=== PATIENT | female | born 1950 | race Caucasian/White ===

== ENCOUNTER 2018-10-26 11:24 | Emergency (ER) | payer OTHER ==
[2018-10-26] MEDS ORDERED: TETANUS & DIPHTHERIA TOX,ADULT 0.5 ML VIAL ONE (12:06)
[2018-10-26] MEDS ORDERED: ONDANSETRON 4 MG/2 ML VIAL ONE (12:06)
[2018-10-26] MEDS ORDERED: MORPHINE 2 MG/ML SYR ONE (12:06)
[2018-10-26 12:16] LABS: Absolute Monocytes 0.5 K/uL (0.1-1.3); Absolute Neutrophil 6.2 K/uL (1.8-8.0); Basophils % 0.8 % (0-1.3); Eosinophils % 0.7 % (0-4.4); Hematocrit 42.7 % (36.0-45.0); Lymphocytes % 22.8 % (15.3-44.8); MPV 8.2 fL (7.6-11.3); Monocytes % 5.9 % (3.3-12.3); RBC Red Blood Cell Count 4.78 M/uL (3.86-4.86)
[2018-10-26] MEDS ORDERED: CEFAZOLIN 1GM (PREMIX IV) 1 GM/50 ML BAG ONE (12:17)
[2018-10-26 12:36] LABS: ALT/SGPT 22 U/L (12-78); AST/SGOT 16 U/L (15-37); Albumin 4.1 g/dL (3.4-5.0); Alkaline Phosphatase 81 U/L (45-117); BUN Blood Urea Nitrogen 15 mg/dL (7-18); Bicarbonate 29 mmol/L (21-32); Bilirubin Direct 0.1 mg/dL (0-0.2); Bilirubin Total 0.4 mg/dL (0.2-1.0); Glucose Level 107 mg/dL (74-106); NT PRO-BNP 73 pg/mL (<125); Potassium 3.8 mmol/L (3.5-5.1); Protein, Total 7.4 g/dL (6.4-8.2); Sodium Level 144 mmol/L (136-145); Troponin (Emerg Dept Use Only) < 0.02 ng/mL (0.0-0.045)
[2018-10-26 12:39] LABS: Protime INR 1.04
--- NOTE | 2018-10-26 12:49 | RAD REPORT ---
EXAM DESCRIPTION: Konstantin Single View10/26/2018 12:42 pm CLINICAL HISTORY: Chest pain COMPARISON: none FINDINGS: The lungs appear clear of acute infiltrate. The heart is normal size IMPRESSION: No acute abnormalities displayed
--- NOTE | 2018-10-26 12:51 | RAD REPORT ---
EXAM DESCRIPTION: RAD - Wrist Left 3 View - 10/26/2018 12:42 pm CLINICAL HISTORY: Left wrist pain status post injury FINDINGS: Impacted comminuted markedly displaced intra-articular fracture involves the distal radius . Mildly displaced fracture of the distal ulna. No gross dislocation seen
--- NOTE | 2018-10-26 13:19 | ER ---
Nurse's Notes [facility] Name: Sharon Bello Age: 68 yrs Sex: Female : 1950 Arrival Date: 10/26/2018 Time: 11:29 Bed 18 Private MD: Chip Greenwood Diagnosis: Colles' fracture-Open, left wrist Presentation: 10/26 11:30 Presenting complaint: Patient states: slipped and fell today onto her left wrist after sv falling onto a wooden floor. Transition of care: patient was not received from another setting of care. Onset of symptoms was October 26, 2018. Care prior to arrival: None. 11:30 Method Of Arrival: Ambulatory sv 11:30 Acuity: KOMAL 3 sv 11:32 Risk Assessment: Do you want to hurt yourself or someone else? Patient reports no aa5 desire to harm self or others. Initial Sepsis Screen: Does the patient meet any 2 criteria? No. Patient's initial sepsis screen is negative. Does the patient have a suspected source of infection? No. Patient's initial sepsis screen is negative. 11:32 Mechanism of Injury: Fall from standing position. Trauma event details: Injury occurred aa5 in the [facility], Injury occurred: at home. Injury occurred: October 26, 2018. Triage Assessment: 11:32 General: Appears in no apparent distress. uncomfortable, Behavior is calm, cooperative, sv appropriate for age. Pain: Complains of pain in left arm. Neuro: Level of Consciousness is awake, alert, obeys commands, Oriented to person, place, time, situation, Moves all extremities. Full function Gait is steady. Respiratory: Respiratory effort is even, unlabored, Respiratory pattern is regular, symmetrical. Derm: Skin is pink, warm \T\ dry. Musculoskeletal: Range of motion: limited in left wrist. 11:32 Injury Description: Fall. aa5 Trauma Activation: Not Applicable Physician: ED Physician; Name: ; Notified At: ; Arrived At: Physician: General Surgeon; Name: ; Notified At: ; Arrived At: Physician: Radiology; Name: ; Notified At: ; Arrived At: Physician: Respiratory; Name: ; Notified At: ; Arrived At: Physician: Lab; Name: ; Notified At: ; Arrived At: Historical: - Allergies: 11:31 No Known Allergies; sv - PMHx: 11:31 None; sv - PSHx: 11:31 ; sv - Immunization history: Last tetanus immunization: unknown. - Ebola Screening: : No symptoms or risks identified at this time. Screenin:40 Abuse screen: Denies threats or abuse. Nutritional screening: No deficits noted. aa5 Tuberculosis screening: No symptoms or risk factors identified. Primary Survey: 11:32 NO uncontrolled hemorrhage observed. A: Airway: patent. Breathing/Chest: Respiratory aa5 pattern: regular, Respiratory effort: spontaneous, unlabored, Chest inspection: symmetrical rise and fall of the chest. Circulation: Skin color: pink. Disability Alert. Exposure/Environment: A warming method has been applied: A warm blanket has been provided to the patient. 11:45 Reassessment Airway Airway Patent Breathing/Chest Respiratory pattern Regular aa5 Respiratory effort Spontaneous Unlabored Circulation Color Corazon Disability Alert. Secondary Survey: 11:32 HEENT: No deficits noted. Gastrointestinal: No deficits noted. : No deficits noted. aa5 Musculoskeletal: deformity noted to left wrist. Assessment: 11:32 General: Appears uncomfortable, Behavior is calm, cooperative. Pain: Complains of pain aa5 in left wrist Pain does not radiate. Pain currently is 5 out of 10 on a pain scale. Quality of pain is described as sharp, tender, numb, Is continuous. Neuro: Level of Consciousness is awake, alert, obeys commands, Oriented to person, place, time, situation. EENT: No signs and/or symptoms were reported regarding the EENT system. Cardiovascular: Heart tones S1 S2 present Rhythm is regular. Respiratory: Airway is patent Respiratory effort is even, unlabored, Respiratory pattern is regular, symmetrical. GI: No signs and/or symptoms were reported involving the gastrointestinal system. : No signs and/or symptoms were reported regarding the genitourinary system. Derm: Skin is pink, warm \T\ dry. Musculoskeletal: Deformity noted to left wrist, swelling noted to left wrist, pt reports tingling and numbness to left fingers, left radial pulse 3+ palpated. Small puncture wound noted to left wrist, mild bleeding noted at this time. Pt able to move left fingers. 12:40 Reassessment: Patient is alert, oriented x 3, equal unlabored respirations, skin aa5 warm/dry/pink. Patient states feeling better. Pt reports pain has decreased. 13:10 Reassessment: Patient appears in no apparent distress at this time. Patient and/or em family updated on plan of care and expected duration. Pain level reassessed. Patient is alert, oriented x 3, equal unlabored respirations, skin warm/dry/pink. report called to LIEN [place] at [facility], pending transportation Patient states feeling better. 13:57 Reassessment: Patient appears in no apparent distress at this time. Patient and/or em family updated on plan of care and expected duration. Pain level reassessed. Patient is alert, oriented x 3, equal unlabored respirations, skin warm/dry/pink. report given to [facility]. Vital Signs: 11:31 BP 140 / 85; Pulse 77; Resp 18; Temp 98.2; Pulse Ox 97% ; Weight 70.31 kg; Height 5 ft. sv 2 in. (157.48 cm); Pain 5/10; 12:45 BP 140 / 73; Pulse 72; Resp 18; Temp 98.3(O); Pulse Ox 100% on R/A; Pain 5/10; em 13:45 BP 136 / 75; Pulse 68; Resp 19; Pulse Ox 99% on R/A; em 11:31 Body Mass Index 28.35 (70.31 kg, 157.48 cm) sv [place] Score: 11:31 Eye Response: spontaneous(4). Verbal Response: oriented(5). Motor Response: obeys aa5 commands(6). Total: 15. Trauma Score (Adult): 11:31 Eye Response: spontaneous(1); Verbal Response: oriented(1); Motor Response: obeys aa5 commands(2); Systolic BP: > 89 mm Hg(4); Respiratory Rate: 10 to 29 per min(4); Hari Score: 15; Trauma Score: 12 ED Course: 11:29 Patient arrived in ED. mr 11:29 Chip Greenwood DO is Private Physician. mr 11:30 Triage completed. sv 11:32 Arm band placed on Patient placed in an exam room, on a stretcher. sv 11:32 Patient has correct armband on for positive identification. Bed in low position. Call aa5 light in reach. Side rails up X2. 11:32 Thermoregulation: warm blanket given to patient. aa5 11:32 Patient maintains SpO2 saturation greater than 95% on room air. aa5 11:33 Jessee Delarosa PA is PHCP. cp 11:33 Jessee Sunshine MD is Attending Physician. cp 11:51 Raymundo Joaquin LVN is Primary Nurse. em 12:43 XRAY Wrist LEFT 3 view In Process Unspecified. EDMS 12:43 XRAY Chest (1 view) In Process Unspecified. EDMS 12:57 No provider procedures requiring assistance completed. aa5 13:03 EKG done, by i&c tech. reviewed by Jessee LEWIS. at1 13:42 Orthoglass splint: Sugar tong splint applied on left arm. ms 14:00 Patient transferred, IV remains in place. 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 Exp: em 09/11/2020. Lot #: [id number]. } Route: IM; Site: left deltoid; 12:40 Follow up: Response: No adverse reaction aa5 12:25 Drug: morphine 4 mg Route: IVP; Site: right antecubital; aa5 Outcome: 13:19 ER care complete, transfer ordered by MD. cp 14:00 Transferred by ground EMS to [facility], Transfer form completed. X-rays sent aa5 w/ patient. 14:00 Condition: stable 14:00 Discharge instructions given to patient, Instructed on the need for transfer. 14:03 Patient left the ED. aa5 Signatures: Dispatcher [employer] June Ragland, LIEN Dyer, Aviva mr Raymundo Joaquin LVN LVN em Kallie Zapata ms JaysonFaye RN RN aa5 Diana Olivia, film splicer EKG Tat1 Jessee Delarosa PA PA cp Corrections: (The following items were deleted from the chart) 11:33 11:31 Pulse 77bpm; Resp 18bpm; Pulse Ox 97%; Temp 98.2F; 70.31 kg; Height 5 ft. 2 in.; sv BMI: 28.3; Pain 5/10; sv
--- NOTE | 2018-10-26 13:20 | EDPHYS ---
Physician Documentation [facility] Name: Sharon Bello Age: 68 yrs Sex: Female : 1950 Arrival Date: 10/26/2018 Time: 11:29 Bed 18 Private MD: Chip Greenwood ED, Corey HPI: 10/26 11:55 This 68 yrs old Female presents to ER via Ambulatory with complaints of Wrist cp Injury. 11:55 The patient or guardian reports decreased range of motion, deformity, injury, pain. The cp complaints affect the left wrist diffusely. Context: The problem was sustained outdoors, resulted from a fall, on an outstretched hand. Onset: The symptoms/episode began/occurred today, at 11:00. Associated signs and symptoms: Pertinent positives: numbness distally. Historical: - Allergies: 11:31 No Known Allergies; sv - PMHx: 11:31 None; sv - PSHx: 11:31 ; sv - Immunization history: Last tetanus immunization: unknown. - Ebola Screening: : No symptoms or risks identified at this time. ROS: 12:00 Constitutional: Negative for body aches, chills, fever, poor PO intake. cp 12:00 Eyes: Negative for injury, pain, redness, and discharge. cp 12:00 Cardiovascular: Negative for chest pain, edema, palpitations. 12:00 Respiratory: Negative for cough, shortness of breath, wheezing. 12:00 Abdomen/GI: Negative for abdominal pain, nausea, vomiting, and diarrhea. 12:00 MS/extremity: Positive for injury or acute deformity, decreased range of motion, pain, swelling, tenderness, of the left wrist. 12:00 Neuro: Positive for numbness, of the left fourth and fifth fingers, Negative for altered mental status, headache, loss of consciousness. 12:00 All other systems are negative. Exam: 12:45 Head/Face: Normocephalic, atraumatic. cp 12:45 Constitutional: The patient appears in no acute distress, alert, awake, non-toxic, well developed, well nourished, uncomfortable. 12:45 Eyes: Periorbital structures: appear normal, Conjunctiva: normal, no exudate, no injection, Lids and lashes: appear normal, bilaterally. 12:45 ENT: External ear(s): are unremarkable, Nose: is normal, Mouth: Lips: moist, Oral mucosa: pink and intact, moist, Posterior pharynx: is normal, airway is patent, no erythema, no exudate. 12:45 Neck: ROM/movement: is normal, is supple, without pain, no range of motions limitations, no meningismus, no nuchal rigidity. 12:45 Chest/axilla: Inspection: normal, Palpation: is normal, no crepitus, no tenderness. 12:45 Cardiovascular: Rate: normal, Rhythm: regular, Edema: is not appreciated. 12:45 Respiratory: the patient does not display signs of respiratory distress, Respirations: normal, no use of accessory muscles, no retractions, no splinting, no tachypnea, labored breathing, is not present, Breath sounds: are clear throughout, no decreased breath sounds, no stridor, no wheezing. 12:45 Abdomen/GI: Inspection: abdomen appears normal, Palpation: abdomen is soft and non-tender, in all quadrants. 12:45 Musculoskeletal/extremity: Perfusion: the extremity is normally perfused throughout, with brisk capillary refill, the left fourth and fifth fingers numbness, Joints: All joints are normal except the left wrist displays deformity, limited range of motion, swelling, tenderness, puncture type wound noted to ulna side of left wrist with mild bleeding noted. 13:03 ECG was reviewed by the Attending Physician. cp Vital Signs: 11:31 BP 140 / 85; Pulse 77; Resp 18; Temp 98.2; Pulse Ox 97% ; Weight 70.31 kg; Height 5 ft. sv 2 in. (157.48 cm); Pain 5/10; 12:45 BP 140 / 73; Pulse 72; Resp 18; Temp 98.3(O); Pulse Ox 100% on R/A; Pain 5/10; em 13:45 BP 136 / 75; Pulse 68; Resp 19; Pulse Ox 99% on R/A; em 11:31 Body Mass Index 28.35 (70.31 kg, 157.48 cm) sv [place] Score: 11:31 Eye Response: spontaneous(4). Verbal Response: oriented(5). Motor Response: obeys aa5 commands(6). Total: 15. Trauma Score (Adult): 11:31 Eye Response: spontaneous(1); Verbal Response: oriented(1); Motor Response: obeys aa5 commands(2); Systolic BP: > 89 mm Hg(4); Respiratory Rate: 10 to 29 per min(4); Hari Score: 15; Trauma Score: 12 MDM: 11:33 Patient medically screened. 12:30 Physician consultation: Daryn Doshi MD was called at 12:15, was contacted at 12:15, regarding patient's condition, after a discussion of the case, a recommendation for transfer for higher level of care is made, due to concern for vascular compromise with open fracture. 12:50 ED course: Spoke with Dr. Sauer concerning transfer of patient. Dr. Sauer spoke to cp Dr. Doshi along with Dr. Lopez who are both orthopedic surgeons. Also had Dr. Nam chief of field operations construction trades contractor as well. All in agreement that since they cannot definitively r/o vascular compromise. It would be better suited for patient to be seen by trauma at [place] for further evaluation . 13:00 Data reviewed: vital signs, nurses notes, lab test result(s), EKG, radiologic studies, cp plain films. 13:00 Test interpretation: by ED physician or midlevel provider: ECG, plain radiologic cp studies. 10/26 11:56 Order name: Basic Metabolic Panel; Complete Time: 12:51 cp 10/26 11:56 Order name: CBC with Diff; Complete Time: 12:51 cp 10/26 11:56 Order name: LFT's; Complete Time: 12:51 cp 10/26 11:56 Order name: Magnesium; Complete Time: 12:51 cp 10/26 11:56 Order name: NT PRO-BNP; Complete Time: 12:51 cp 10/26 11:56 Order name: PT-INR; Complete Time: 12:51 cp 10/26 11:49 Order name: XRAY Wrist LEFT 3 view 10/26 11:56 Order name: Troponin (emerg Dept Use Only); Complete Time: 12:51 cp 10/26 11:56 Order name: XRAY Chest (1 view); Complete Time: 12:51 cp 10/26 11:49 Order name: IV; Complete Time: 12:04 cp 10/26 11:56 Order name: EKG; Complete Time: 11:57 cp 10/26 11:56 Order name: Cardiac monitoring; Complete Time: 12:25 cp 10/26 11:56 Order name: EKG - Nurse/Tech; Complete Time: 13:06 cp 10/26 11:56 Order name: Labs collected and sent; Complete Time: 12:25 cp 10/26 11:56 Order name: O2 Per Protocol; Complete Time: 12:25 cp 10/26 11:56 Order name: O2 Sat Monitoring; Complete Time: 12:25 cp EC:03 Rate is 62 beats/min. Rhythm is regular. NM interval is normal. QRS interval is normal. cp QT interval is normal. T waves are Inverted in lead III. Interpreted by me. Reviewed by me. Administered Medications: 12:04 Drug: morphine 2 mg Route: IVP; Site: right antecubital; aa5 12:40 Follow up: Response: No adverse reaction; Pain is decreased aa5 12:04 Drug: Zofran 4 mg Route: IVP; Site: right antecubital; aa5 12:40 Follow up: Response: No adverse reaction aa5 12:55 Follow up: Response: No adverse reaction em 12:20 Drug: Ancef 1 grams Route: IVPB; Site: right antecubital; em 12:24 Drug: Tetanus-Diphtheria Toxoid Adult 0.5 ml {Stunner: [employer]. Exp: em 09/11/2020. Lot #: [id number]. } Route: IM; Site: left deltoid; 12:40 Follow up: Response: No adverse reaction aa5 12:25 Drug: morphine 4 mg Route: IVP; Site: right antecubital; aa5 Disposition: 10/26/18 13:19 Transfer ordered to [facility]. Diagnosis is Colles' fracture - Open, left wrist. - Reason for transfer: Higher level of care. - Accepting physician is DR Ho. - Condition is Stable. - Problem is new. - Symptoms have improved. Addendum: 10/29/2018 05:29 Co-signature as Attending Physician, Jessee Sunshine MD I agree with the assessment and c samuels plan of care. Signatures: Dispatcher [employer] June Ragland, RN Jessee Michelle MD MD cha Munoz, Edgar, LEAD MANUFACTURING ENGINEERING TECH LEAD MANUFACTURING ENGINEERING TECH em Faye Tyler RN RN aa5 Jessee Delarosa PA PA cp Corrections: (The following items were deleted from the chart) 10/26 14:03 13:19 10/26/2018 13:19 Transfer ordered to [facility]. aa5 Diagnosis is Colles' fracture - Open, left wrist. Reason for transfer: Higher level of care. Accepting physician is DR Ho. Condition is Stable. Problem is new. Symptoms have improved. cp
[2018-10-26] MEDS ORDERED: MORPHINE 4 MG/ML SYR ONE (13:30)
--- NOTE | 2018-10-26 16:20 | EKG ---
Test Date: 2018-10-26 Test Time: 12:49:41 Checking Clerk: JD MEASUREMENT RESULTS: Intervals: Rate: 62 VA: 184 QRSD: 72 QT: 410 QTc: 416 [place]: P: 64 VA: 184 QRS: 38 T: 25 INTERPRETIVE STATEMENTS: Normal sinus rhythm Normal ECG No previous ECG available for comparison Electronically Signed On 10-26-18 16:18:20 SHAPING MACHINE TENDER by Cristobal Leonard
== END 2018-10-26 14:03 | disposition short-term general hospital (02) ==
LOC: ER 11:24
DX: S52.532B Colles' fracture of left radius, initial encounter for open fracture type I or II (principal); W19.XXXA Unspecified fall, initial encounter; Y93.9 Activity, unspecified; Y92.89 Other specified places as the place of occurrence of the external cause; Z23 Encounter for immunization
CPT/HCPCS: 36415; 71045; 73110; 80048; 80076; 83735; 83880; 84484; 85025; 85610; 90714; 93005; 96374; 96375; 99285; J0690; J2270; J2405